=== PATIENT | male | born 1940 | race Native Hawaiian/Other Pacific Islander ===

== ENCOUNTER 2019-11-15 10:40 | Outpatient (CLI) | payer OTHER | END 2019-11-15 20:08 | disposition home or self-care (01) | LOC: RESP 10:40 → US 10:40 | DX: R09.89 Other specified symptoms and signs involving the circulatory and respiratory systems (principal); I73.89 Other specified peripheral vascular diseases; R07.89 Other chest pain; R53.81 Other malaise; R53.83 Other fatigue | CPT/HCPCS: 93306 ==

== ENCOUNTER 2019-11-17 08:26 | Outpatient (CLI) | payer OTHER ==
[~2019-11-17] VITALS: Ht 177.8 cm; Wt 90.7 kg
== END 2019-11-17 19:26 | disposition home or self-care (01) ==
LOC: NM 08:26
DX: R53.83 Other fatigue (principal); R09.89 Other specified symptoms and signs involving the circulatory and respiratory systems; I73.89 Other specified peripheral vascular diseases; R07.89 Other chest pain
CPT/HCPCS: A9500; J2785

== ENCOUNTER 2020-01-10 15:29 | Outpatient (CLI) | payer OTHER | END 2020-01-10 20:13 | disposition home or self-care (01) | LOC: US 15:29 | DX: I73.9 Peripheral vascular disease, unspecified (principal) ==

== ENCOUNTER 2020-02-09 12:52 | Outpatient (CLI) | payer OTHER | END 2020-02-09 22:46 | disposition home or self-care (01) | LOC: US 12:52 | DX: R10.32 Left lower quadrant pain (principal); R97.20 Elevated prostate specific antigen [PSA]; R31.0 Gross hematuria | CPT/HCPCS: 36415; 82565; 84154; 84520 ==

== ENCOUNTER 2020-02-15 10:56 | Outpatient (CLI) | payer OTHER | END 2020-02-15 19:21 | disposition home or self-care (01) | LOC: CT 10:56 | DX: N20.0 Calculus of kidney (principal) | CPT/HCPCS: 36415; 82565; 84520 ==

== ENCOUNTER 2020-11-09 14:05 | Inpatient (IN) | payer OTHER ==
[2020-11-13 08:27] LABS: PLATELET COUNT 132 K/uL (142-355)
[2020-11-13 08:29] LABS: POTASSIUM 3.8 mmol/L (3.6-5.2)
== END 2020-11-15 11:00 | disposition expired ==
LOC: PAVA 14:05
PROVIDERS: ADMIT Internal Medicine; ATTEND Internal Medicine
DX: J18.9 Pneumonia, unspecified organism (principal); J96.01 Acute respiratory failure with hypoxia; U07.1 COVID-19; G93.40 Encephalopathy, unspecified; M62.81 Muscle weakness (generalized); R13.12 Dysphagia, oropharyngeal phase; N17.9 Acute kidney failure, unspecified; Z74.1 Need for assistance with personal care; N40.0 Benign prostatic hyperplasia without lower urinary tract symptoms; I25.2 Old myocardial infarction; R26.2 Difficulty in walking, not elsewhere classified
CPT/HCPCS: 80053; 80061; 82306; 82607; 82728; 83036; 83540; 83880; 84153; 84443; 85007; 85027; 96374